=== PATIENT | female | born 1980 | race Caucasian/White ===

== ENCOUNTER 2020-11-10 22:00 | Emergency (ER) | payer OTHER ==
[~2020-11-10] VITALS: Ht 160 cm; Wt 70.8 kg
[2020-11-10 22:11] VITALS: Ht 160 cm; Wt 70.8 kg
[2020-11-10 23:13] LABS: BASOPHIL % 1.2 % (0.2-1.3); PLATELET COUNT 256 x10^3mcL (179-408)
[2020-11-10 23:14] LABS: RED CELL DISTRIBUTION WIDTH 16.7 % (12.3-17.7)
[2020-11-10 23:22] LABS: CALCIUM 9.1 mg/dL (8.5-10.1); CARBON DIOXIDE 28.2 mmol/L (21-32); CHLORIDE SERUM 104 mmol/L (98-107); CREATININE SERUM 0.8 mg/dL (0.6-1.0); GFR1 > 60 mL/min; GLUCOSE SERUM 89 mg/dL (74-106); SODIUM SERUM 138 mmol/L (136-145)
[2020-11-10 23:27] LABS: ALKALINE PHOSPHATASE 60 U/L (46-116); ALT/SGPT 23 U/L (14-59); AST/SGOT 16 U/L (15-37); BILIRUBIN TOTAL 0.7 mg/dL (0.20-1.00); TOTAL PROTEIN, SERUM 7.8 g/dL (6.4-8.2)
[2020-11-10 23:30] VITALS: BP 142/97
[2020-11-11] MEDS ORDERED: NAPROXEN375 MG PO (00:03)
[2020-11-11] MEDS ORDERED: CARAFATE1 GM/10 ML PO (00:03)
== END 2020-11-11 00:24 | disposition home or self-care (01) ==
LOC: ED 22:00
DX: F41.9 Anxiety disorder, unspecified (principal); R07.89 Other chest pain; E03.9 Hypothyroidism, unspecified; I10 Essential (primary) hypertension
CPT/HCPCS: 99406; J1885